=== PATIENT | female | born 1995 | race Caucasian/White ===

== ENCOUNTER 2021-02-07 22:14 | Emergency (ER) | payer SELFPAY ==
[~2021-02-07] VITALS: Ht 172.7 cm; Wt 82.5 kg
[2021-02-07 22:32] VITALS: BP 129/80
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
[2021-02-08] MEDS ORDERED: ONDA4TAB12 PO (00:46)
[2021-02-08] MEDS ORDERED: ONDANSETRON ODT 4 MG TAB.RAPDIS PO ONE (01:00)
[2021-02-08] MEDS ORDERED: traMADol 50 MG TABLET PO ONE (01:00)
== END 2021-02-08 00:55 | disposition home or self-care (01) ==
LOC: ER 22:14
DX: S02.2XXA Fracture of nasal bones, initial encounter for closed fracture (principal); Y08.89XA Assault by other specified means, initial encounter; Y93.89 Activity, other specified; Y92.89 Other specified places as the place of occurrence of the external cause; Y99.8 Other external cause status
CPT/HCPCS: 70450; 70486; 99284

== ENCOUNTER 2021-03-30 15:22 | Emergency (ER) | payer SELFPAY ==
[~2021-03-30] VITALS: Ht 172.7 cm; Wt 82.4 kg
[~2021-03-30 15:22] MED LIST: ONDA4TAB12 PO
[2021-03-30 15:30] VITALS: BP 128/79
[2021-03-30 16:27] LABS: BACTERIA,URINE FEW /HPF (0-FEW); BILIRUBIN,URINE NEG (NEG); CLARITY,URINE CLEAR; COLOR,URINE YELLOW; GLUCOSE,URINE NEG (NEG); NITRITE,URINE NEG (NEG); SQUAMOUS EPITHELIAL CELL,UR FEW /LPF; UROBILINOGEN,URINE 0.2 mg/dL (0.2 mg/dL); YEAST,URINE PRESENT /HPF
[2021-03-30 16:33] LABS: U PREG PATIENT POSITIVE (NEG)
--- NOTE | 2021-03-30 16:59 | RAD ---
Exam: Ultrasound OB less than 14 weeks Indication: Left pelvic pain and cramping Technique: Real-time grayscale and color Doppler images of the pelvis were obtained by the department juvenile counselor. Comparisons: None FINDINGS: Uterus measures 10.3 x 7.6 x 6.7 cm. Within the endometrium there is a gestational sac with internal yolk sac and pole. [place]-rump length is measured at 2.3 cm corresponding to 9 weeks 0 days gest ation. heart rate is measured at 182 bpm. Estimated due date by LMP: 11/05/2021 Estimated due date by ultrasound: 11/02/2021 Right ovary measures 4.1 x 3.3 x 1.8 cm. Left ovary measures 2.6 x 1.6 x 1.8 cm. Vascular flow identified in the ovaries bilaterally. No free fluid identified in the pelvis IMPRESSION: 1. Single live intrauterine gestation of 8 weeks 4 days by LMP with concordant ultrasound. 2. Dedicated survey is recommended 8 18-20 weeks gestation Electronically signed by: Thiago Matute MD (03/30/2021 4:56 PM) [facility]
[2021-03-30] MEDS ORDERED: MICO45CR41 VG (17:43)
--- NOTE | 2021-03-30 17:43 | PHYS DOC ---
Past History Past Surgical History: No Surgical History Additional Past Surgical Histo: heart surgery (ROBYN VEGA CHEMICAL LAB TECHNICIAN) Alcohol Use: None (ROBYN VEGA APRN) Adult General Chief Complaint Chief Complaint: VAGINAL PROBLEM HPI HPI Patient is a 25-year-old female patient 1 para 0 currently 8 weeks presenting today complaining of left lower quadrant abdominal pain described as sharp and intermittent, symptoms for a week, also complaining of vaginal discharge green in color for 1 week, denies any concerns for STDs. She states she was seen at a different clinic a week ago and was told she has a yeast infection, she states she was given a cream to use but did not use it. (ROBYN VEGA CHEMICAL LAB TECHNICIAN) Review of Systems Review of Systems Constitutional: Denies fever or chills [] Eyes: Denies change in visual acuity, redness, or eye pain [] HENT: Denies nasal congestion or sore throat [] Respiratory: Denies cough or shortness of breath [] Cardiovascular: No additional information not addressed in HPI [] GI: Reports left lower quadrant pain in , vaginal discharge, denies nausea, vomiting, bloody stools or diarrhea [] : Denies dysuria or hematuria [] Musculoskeletal: Denies back pain or joint pain [] Integument: Denies rash or skin lesions [] Neurologic: Denies headache, focal weakness or sensory changes [] All other systems were reviewed and found to be within normal limits, except as documented in this note. (ROBYN VEGA CHEMICAL LAB TECHNICIAN) Allergies Allergies Allergies Coded Allergies Type Severity Reaction Last Updated Verified No Known Drug Allergies 02/07/21 No (ROBYN VEGA APRN) Physical Exam Physical Exam Constitutional: Well developed, well nourished, no acute distress, non-toxic appearance. [] HENT: Normocephalic, atraumatic, bilateral external ears normal, oropharynx moist, no oral exudates, nose normal. [] Eyes: PERRLA, EOMI, conjunctiva normal, no discharge. [] Neck: Normal range of motion, no tenderness, supple, no stridor. [] Cardiovascular:Heart rate regular rhythm, no murmur [] Lungs & Thorax: Bilateral breath sounds clear to auscultation [] Abdomen: Bowel sounds normal, soft, no tenderness, no masses, no pulsatile masses. [] Pelvic exam External pelvic appears normal, cervix is visualized, closed, no CMT, mild amount of think crusty whitish discharge in the vaginal vault Skin: Warm, dry, no erythema, no rash. [] Back: No tenderness, no CVA tenderness. [] Extremities: No tenderness, no cyanosis, no clubbing, ROM intact, no edema. [] Neurologic: Alert and oriented X 3, normal motor function, normal sensory function, no focal deficits noted. [] Psychologic: Affect normal, judgement normal, mood normal. [] (ROBYN VEGA APRN) Current Patient Data Vital Signs Vital Signs Date Time Temp Pulse Resp B/P (MAP) Pulse Ox O2 Delivery O2 Flow Rate FiO2 03/30/21 15:30 98.2 85 20 128/79 (95) 100 Room Air Lab Results Laboratory Tests Test 03/30/21 15:34 Urine Collection Type Unknown Urine Color Yellow Urine Clarity Clear Urine pH 7.0 Urine Specific [place] 1.025 Urine Protein Neg (NEG-TRACE) Urine Glucose (UA) Neg mg/dL (NEG) Urine Ketones (Stick) Neg mg/dL (NEG) Urine Blood Neg (NEG) Urine Nitrite Neg (NEG) Urine Bilirubin Neg (NEG) Urine Urobilinogen Dipstick 0.2 mg/dL (0.2 mg/dL) Urine Leukocyte Esterase Trace (NEG) Urine RBC 1-2 /HPF (0-2) Urine WBC 1-4 /HPF (0-4) Urine Squamous Epithelial Cells Few /LPF Urine Bacteria Few /HPF (0-FEW) Urine Mucus Slight /LPF Urine Yeast Present /HPF Urine Test Positive (NEG) Microbiology 03/30/21 Wet Prep - Final, Complete (ROBYN VEGA APRN) EKG EKG [] (ROBYN VEGA APRN) Radiology/Procedures Radiology/Procedures []PROCEDURE: PREG 1ST TRIMESTER Exam: Ultrasound OB less than 14 weeks Indication: Left pelvic pain and cramping Technique: Real-time grayscale and color Doppler images of the pelvis were obtained by the department service planner. Comparisons: None FINDINGS: Uterus measures 10.3 x 7.6 x 6.7 cm. Within the endometrium there is a gestational sac with internal yolk sac and pole. [place]-rump length is measured at 2.3 cm corresponding to 9 weeks 0 days gestation. heart rate is measured at 182 bpm. Estimated due date by LMP: 11/05/2021 Estimated due date by ultrasound: 11/02/2021 Right ovary measures 4.1 x 3.3 x 1.8 cm. Left ovary measures 2.6 x 1.6 x 1.8 cm. Vascular flow identified in the ovaries bilaterally. No free fluid identified in the pelvis IMPRESSION: 1. Single live intrauterine gestation of 8 weeks 4 days by LMP with concordant ultrasound. 2. Dedicated survey is recommended 8 18-20 weeks gestation Electronically signed by: Thiago Baer MD (03/30/2021 4:56 PM) [facility] DICTATED AND SIGNED BY: THIAGO BAER MD DATE: 03/30/211652 CC: ROBYN VEGA APRN; PCP,NO ~MTH0 0 (ROBYN VEGA APRN) Heart Score C/O Chest Pain: N/A Risk Factors: Risk Factors: DM, Current or recent (<one month) smoker, HTN, HLP, family history of CAD, obesity. Risk Scores: Risk Factors: DM, Current or recent (<one month) smoker, HTN, HLP, family history of CAD, obesity. (ROBYN VEGA APRN) Course & Med Decision Making Course & Med Decision Making Pertinent Labs and Imaging studies reviewed. (See chart for details) This is a 25-year-old female patient presenting to the ED today with abdominal pain in as well as vaginal discharge, symptoms for 1 week. Wet prep noted for yeast infection. UA negative for UTI. OB ultrasound -Single live intrauterine gestation of 8 weeks 4 days HR 182. D/c with Miconazole follow up with OBGYN as soon she can (ROBYN VEGA APRN) Course & Med Decision Making I was the Attending physician on the above date of service of this patient. This patient was evaluated, examined, treated, and dispositioned from the emergency department by the mid-level practitioner. Although I was working at the time , no assistance was requested. Electronically signed, Rm Zazueta DO (RM ZAZUETA DO) Massimo Disclaimer Dragon Disclaimer This electronic medical record was generated, in whole or in part, using a voice recognition dictation system. (ROBYN VEGA APRN) Departure Departure: Impression: Primary Impression: Vaginal candidiasis Additional Impression: Abdominal pain in Disposition: HOME / SELF CARE / HOMELESS Condition: STABLE Referrals: PCP,NO (PCP) follow up with your OBGYN as soon as you can Patient Instructions: Abdominal Pain During , Candidal Vulvovaginitis, [id number] Additional Instructions: You are 8 weeks 4 days . Please use the medication prescribed for yeast infection as ordered. Please follow-up with your PRODUCTION SUPPLY EQUIPMENT TENDER as soon as you can Scripts Miconazole Nitrate (MONISTAT 7) 45 Gm Cream.appl 1 APPFUL VG QHS for 7 Days, #45 GM 0 Refills Prov: ROBYN VEGA APRN 03/30/21 Problem Qualifiers Additional Impression: Abdominal pain in Trimester: first trimester Qualified Codes: O26.891 - Other specified related conditions, first trimester; R10.9 - Unspecified abdominal pain ROBYN VEGA APRN Mar 30, 2021 17:43 RM ZAZUETA DO Apr 02, 2021 08:24
[2021-03-31 19:08] LABS: CHLAMYDIA PROBE Negative (Negative)
== END 2021-03-30 17:50 | disposition home or self-care (01) ==
LOC: ER 15:22
DX: O98.311 Other infections with a predominantly sexual mode of transmission complicating pregnancy, first trimester (principal); B37.3 Candidiasis of vulva and vagina; Z3A.08 8 weeks gestation of pregnancy
CPT/HCPCS: 76801; 81001; 81025; 87086; 87491; 87591; 99284; Q0111; 87077